=== PATIENT | female | born 1970 | race Caucasian/White ===

== ENCOUNTER 2018-04-27 08:55 | Emergency (ER) | payer OTHER ==
[2018-04-27 09:01] VITALS: BP 118/65; PULSE 86; TEMP 98.2; BMI 27.3
--- NOTE | 2018-04-27 09:15 | PDOC ---
History of Present Illness - General Chief Complaint: Diarrhea Stated Complaint: HEADACHE Time Seen by Provider: 04/27/18 09:14 History Source: Patient Exam Limitations: No Limitations - History of Present Illness Initial Comments: 04/27/18 09:15 CHIEF COMPLAINT: Headache HISTORY OF PRESENT ILLNESS: This is a 47-year-old female with a history of hypothyroidism who presents complaining of one day of "diarrhea" (1 episode of loose stool), lower abdominal pain/cramping, back pain, and generalized headache. She denies fevers/chills, nausea/vomiting, dysuria, or any other symptoms. She denies sick contacts. She has not yet tried any medication for her symptoms. 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 Traylor ([facility]) REVIEW OF SYSTEMS: GENERAL/CONSTITUTIONAL: No fever or chills. No weakness. No weight change. HEAD, EYES, EARS, NOSE AND THROAT: No change in vision. No ear pain or discharge. No sore throat. CARDIOVASCULAR: No chest pain or palpitations. RESPIRATORY: No cough, wheezing, or shortness of breath. GASTROINTESTINAL: No nausea, vomiting, diarrhea or constipation. GENITOURINARY: No dysuria, frequency, or change in urination. Bilat low back/ flank pain, L>R. LMP beginning of April. MUSCULOSKELETAL: No joint or muscle swelling or pain. No neck or back pain. SKIN: No rash or easy bruising. NEUROLOGIC: Generalized headache. No vertigo, loss of consciousness, or loss of sensation. PSYCHIATRIC: No depression or anxiety. Some emotional lability which she attribute to beginning menopause. ENDOCRINE: No increased thirst. No abnormal weight change. HEMATOLOGIC/LYMPHATIC: No anemia, easy bleeding, or history of blood clots. ALLERGIC/IMMUNOLOGIC: No hives or skin allergy. No latex allergy. PHYSICAL EXAM: GENERAL: The patient is awake, alert, and fully oriented, in no acute distress. HEAD: Normal with no signs of trauma. ENT: Pupils equal, round and reactive to light, extraocular movements intact, sclera anicteric, conjunctiva clear. Neck supple. LUNGS: Clear to auscultation bilaterally. Normal excursion. No respiratory distress or use of accessory muscles. CV: RRR, S1/S2, no MRG. Cap refill < 2 sec. ABDOMEN: Soft, non-distended, mildly tender to deep palpation in RLQ and LLQ without guarding or rebound tenderness. Mild left CVA tenderness. EXTREMITIES: Normal range of motion, no edema. NEUROLOGICAL: Normal speech, normal gait. CN II-XII grossly intact. PSYCH: Normal mood, normal affect. SKIN: Warm, dry, normal turgor, no rashes or lesions noted. Past History - Past Medical History Allergies/Adverse Reactions: Allergies Allergy/AdvReac Type Severity Reaction Status Date / Time No Known Allergies Allergy Verified 04/27/18 09:02 Home Medications: Ambulatory Orders NK [No Known Home Medication] 04/27/18 COPD: No - Immunization History Immunization Up to Date: Yes - Suicide/Smoking/Psychosocial Hx Smoking Status: No Smoking History: Unknown if ever smoked Have you smoked in the past 12 months: No Number of Cigarettes Smoked Daily: 0 Hx Alcohol Use: No Drug/Substance Use Hx: No Substance Use Type: None *Physical Exam - Vital Signs Last Vital Signs Temp Pulse Resp BP Pulse Ox 98.2 F 86 16 118/65 97 04/27/18 08:58 04/27/18 08:58 04/27/18 08:58 04/27/18 08:58 04/27/18 08:58 Moderate Sedation - Procedure Monitoring Vital Signs: Procedure Monitoring Vital Signs Temperature 98.2 F 04/27/18 08:58 Pulse Rate 86 04/27/18 08:58 Respiratory Rate 16 04/27/18 08:58 Blood Pressure 118/65 04/27/18 08:58 O2 Sat by Pulse Oximetry (%) 97 04/27/18 08:58 ED Treatment Course - LABORATORY CBC & Chemistry Diagram: 04/27/18 09:30 04/27/18 09:30 Medical Decision Making - Medical Decision Making 04/27/18 10:09 A/P: 47-year-old female with multiple symptoms including lower abdominal low back pain and headache. Normal neurologic exam. Differential includes but is not limited to UTI/pyelonephritis, gastroenteritis or other viral syndrome. 1. Labs including CBC, CMP, UA/culture 2. IV fluids 3. Tylenol for headache 4. Reassess 04/27/18 11:21 WBC 12.3. UA with 3+ leukesterase, cloudy and foul-smelling. Patient tolerating PO. Headache and abdominal pain resolved after fluids/Tylenol. Will treat with Keflex for pyelonephritis. Followup and return precautions discussed with patient and . *DC/Admit/Observation/Transfer Diagnosis at time of Disposition: Pyelonephritis - Discharge Dispostion Disposition: HOME Condition at time of disposition: Stable Decision to Admit order: No - Referrals Referrals: Yonas Traylor [Primary Care Provider] - 3 days - Patient Instructions Printed Discharge Instructions: DI for Kidney Infection Additional Instructions: -Rest and stay well-hydrated -Take Tylenol as needed for pain or fever -Take Keflex as prescribed for the full course -Follow up with your primary care provider later this week -Return here for vomiting/inability to keep down fluids, fever, worsening pain, or any other concerning symptoms Print Language: INDONESIAN - Post Discharge Activity Forms/Work/School Notes: Back to Work
[2018-04-27] MEDS ORDERED: ACETAMINOPHEN 500 MG TABLET (FP) PO ONE (09:42)
[2018-04-27] MEDS ORDERED: SODIUM CHLORIDE 1,000 ML IV STA (09:42)
[2018-04-27 09:55] LABS: BASO % 0.2 % (0-2.0); EOS % 0.2 % (0-4.5); HEMATOCRIT 34.3 % (32.4-45.2); HEMOGLOBIN 11.7 GM/dL (10.7-15.3); LYMPH % 10.5 % (8-40); MCH 25.4 pg (25.7-33.7); MCHC 34.1 g/dl (32.0-36.0); MEAN CELL VOLUME 74.4 fl (80-96); MEAN PLT VOLUME 7.4 fl (7.5-11.1); MONO % 4.6 % (3.8-10.2); NEUT % 84.5 % (42.8-82.8); PLATELET COUNT 355 K/MM3 (134-434); RDW 17.9 % (11.6-15.6); WHITE BLOOD COUNT 12.3 K/mm3 (4.0-10.0)
[2018-04-27] MEDS ORDERED: ACETAMINOPHEN 325 MG TABLET (FP) ONE (09:57)
[2018-04-27 10:04] LABS: URINE APPEARANCE CLOUDY; URINE BILIRUBIN NEGATIVE (<2.0 mg/dL); URINE COLOR DKYELLOW; URINE GLUCOSE (UA) NEGATIVE (NEGATIVE); URINE KETONE NEGATIVE (NEGATIVE); URINE LEUK ESTERASE 3+ (NEGATIVE); URINE NITRITE NEGATIVE (NEGATIVE); URINE PROTEIN 1+ (NEGATIVE); URINE UROBILINOGEN NEGATIVE mg/dL (0.2-1.0)
[2018-04-27 10:27] LABS: EPI CELLS MANY /HPF (FEW); URINE BACTERIA RARE /hpf (NONE SEEN); URINE MUCUS MANY
[2018-04-27] MEDS ORDERED: CEPHALEXIN MONOHYDRATE 500 MG CAPSULE (UD) PO ONE (10:48)
[2018-04-27 11:02] LABS: ALBUMIN 3.8 g/dl (3.4-5.0); ALK PHOS 97 U/L (45-117); ANION GAP 8 MMOL/L (8-16); BLOOD UREA NITROGEN 10 mg/dL (7-18); CALCIUM 9.3 mg/dL (8.5-10.1); CHLORIDE 105 mmol/L (98-107); CO2 22 mmol/L (21-32); CREATININE 0.6 mg/dL (0.55-1.3); GLUCOSE,RANDOM 88 mg/dL (74-106); POTASSIUM 3.9 mmol/L (3.5-5.1); SGOT/AST 17 U/L (15-37); SGPT/ALT 27 U/L (13-61); SODIUM 136 mmol/L (136-145); TOT PROT 7.9 g/dl (6.4-8.2)
== END 2018-04-27 11:36 | disposition home or self-care (01) ==
LOC: JER 08:55
PROC: 3E0337Z Introduction of Electrolytic and Water Balance Substance into Peripheral Vein, Percutaneous Approach (ICD-10-PCS; principal; 2018-04-27)
DX: N12 Tubulo-interstitial nephritis, not specified as acute or chronic (principal)
CPT/HCPCS: 36415; 80053; 81003; 81015; 85025; 87086; 99281-25; J7030

== ENCOUNTER 2019-05-25 08:39 | Emergency (ER) | payer OTHER ==
[2019-05-25 08:47] VITALS: BP 138/47; PULSE 96; TEMP 98.2; BMI 28.3
--- NOTE | 2019-05-25 09:01 | PDOC ---
History of Present Illness - General Chief Complaint: Sore Throat Stated Complaint: COUGH/SORE THROAT Time Seen by Provider: 05/25/19 08:51 History Source: Patient - History of Present Illness Timing/Duration: reports: this morning Past History - Past Medical History Allergies/Adverse Reactions: Allergies Allergy/AdvReac Type Severity Reaction Status Date / Time No Known Allergies Allergy Verified 05/25/19 08:47 Home Medications: Ambulatory Orders NK [No Known Home Medication] 05/25/19 COPD: No - Immunization History Immunization Up to Date: Yes - Psycho Social/Smoking Cessation Hx Smoking Status: No Smoking History: Never smoked Have you smoked in the past 12 months: No Number of Cigarettes Smoked Daily: 0 Hx Alcohol Use: No Drug/Substance Use Hx: No Substance Use Type: None Review of Systems - Review of Systems Constitutional: No: Chills, Fever HEENTM: Yes: Nose Congestion. No: Ear Pain Respiratory: Yes: Cough, Wheezing. No: Shortness of Breath Cardiac (ROS): No: Chest Pain *Physical Exam - Vital Signs Last Vital Signs Temp Pulse Resp BP Pulse Ox 98.2 F 96 H 14 138/47 L 99 05/25/19 08:45 05/25/19 08:45 05/25/19 08:45 05/25/19 08:45 05/25/19 08:45 - Physical Exam General Appearance: Yes: Appropriately Dressed. No: Apparent Distress HEENT: positive: Normal ENT Inspection, Normal Voice, TMs Normal, Pharynx Normal. negative: Scleral Icterus (R), Scleral Icterus (L) Neck: positive: Supple. negative: Lymphadenopathy (R), Lymphadenopathy (L) Respiratory/Chest: positive: Lungs Clear, Normal Breath Sounds. negative: Respiratory Distress Cardiovascular: positive: Regular Rate, S1, S2 Integumentary: positive: Dry, Warm Neurologic: positive: Fully Oriented, Alert, Normal Mood/Affect Medical Decision Making - Medical Decision Making 05/25/19 08:59 48 yo F, no sig hx, here w/ cough w/ congestion and sore throat this am. No ear pain, sob, CP, body aches, f/c see exam M/l viral URI Exam wnl Dc w/ supportive tx Discharge - Discharge Information Problems reviewed: Yes Clinical Impression/Diagnosis: URI (upper respiratory infection) Qualifiers: URI type: unspecified viral URI Qualified Code(s): J06.9 - Acute upper respiratory infection, unspecified Condition: Good Disposition: HOME - Follow up/Referral - Patient Discharge Instructions Patient Printed Discharge Instructions: DI for Viral Upper Respiratory Infection -- Adult - Post Discharge Activity Work/Back to School Note: Back to Work
== END 2019-05-25 09:25 | disposition home or self-care (01) ==
LOC: JERFT 08:39
DX: J06.9 Acute upper respiratory infection, unspecified (principal)
CPT/HCPCS: 99282-25